=== PATIENT | female | born 1960 | race Caucasian/White ===

== ENCOUNTER 2018-06-28 15:02 | Emergency (ER) | payer MEDICAID, SELFPAY ==
[2018-06-28] VITALS (10 sets, daily range): BP systolic 105–118; BP diastolic 59–73; PULSE 78–103; RESP 15–18; TEMP 36.6–37.4; O2SAT 96–98; BMI 23.6
--- NOTE | 2018-06-28 15:28 | EKG12_ITS ---
Test Reason : SUICIDAL Blood Pressure : / mmHG Vent. Rate : 084 BPM Atrial Rate : 084 BPM P-R Int : 130 ms QRS Dur : 078 ms QT Int : 418 ms P-R-T Axes : 070 049 063 degrees QTc Int : 493 ms Normal sinus rhythm Prolonged QT Abnormal ECG Confirmed by PARTH FRASER, BRIDGETTE ([id number]), news videotape editor [place] ([id number]) on 06/30/2018 5:00:35 PM Referred By: Confirmed By:BRIDGETTE ALBA MD
--- NOTE | 2018-06-28 15:37 | ED.DCSUM_ITS ---
- ER Visit Summary Date of Service: 06/28/18 Chief Complaint: Suicidal ideation History of Present Illness: The patient is a 58 F who states that she wants to . She states that she feels worthless for being a drug addict. She states that she smokes meth very frequently. The patient states that she has been going to intensive outpatient rehab with [facility] but keeps missing appointments because she is using meth. She states that she wishes to overdose on methamphetamines and kill herself. Physical Examination: Afebrile vital signs are stable Gen: Well-nourished well-developed Head: Normocephalic atraumatic Eyes: Perrl EOMI ENT: TMs clear no rhinorrhea moist mucous membranes Neck: Supple no lymphadenopathy no JVD nontender CVS: Regular rate rhythm no murmurs normal S1-S2 Respiratory: No distress clear to auscultation bilaterally chest nontender Abdomen: Soft nontender nondistended normal bowel sounds no masses Back: Nontender Extremity: Nontender no edema Skin: Normal color no rash Neuro: alert orientated ?3 CN II-XII intact normal strength sensation reflexes gait cerebellar Psych: Depressed feelings of self worth admits to suicidal ideation Emergency Department Course and Treatment: Psychiatric screening labs were obtained. Toxicology is positive for amphetamines. Normal TSH. Potassium slightly low at 3 and she received 40 mEq p.o. Her EKG is sinus at a rate of 84. Crisis will be up to evaluate the patient. They have seen the patient and the patient has been accepted to [facility]. Most likely transfer will not occur until the morning. Will be assigned to the night physician. Impression: 1. Major depression 2. Suicidal 3. Methamphetamine abuse This note was generated with Gl[employer] dictation software. It may contain incorrect words, spelling, and punctuation that were not noted in review of the chart prior to signing ED Disposition - Plan for ED Patient: Referrals: Candido Adame MD [Primary Care Provider] -
[2018-06-28 16:01] LABS: Absolute Lymphocyte Count 0.98 X10^3/ul (0.83-4.51); Absolute Neutrophil Count 6.6 X10^3/uL (2.0-7.7); Basophil# 0.03 X10^3/uL; Basophil% 0.4 % (0-1); Eosinophil# 0.03 X10^3/uL; Eosinophils% 0.4 % (0-5); Hematocrit 41.5 % (37-47); Hemoglobin 14.1 g/dl (12.0-15.0); Lymphocyte # 0.98 X10^3/ul (4.0); Mean Corpuscular Hgb 31.3 pg (27.0-32.0); Mean Platelet Vol. 10.7 fl (6.2-12.0); Monocyte# 0.55 X10^3/uL; Monocyte% 6.7 % (0-10); Neutrophil # 6.57 X10^3/uL (2.7-7.7); Neutrophil % 80.4 % (47-70); Platelet Count 221 K/mm3 (150-450); RBC Distribution Width CV 13.1 % (11.6-14.6); RBC Distribution Width SD 43.3 fl (35.1-43.9); Red Blood Count 4.51 M/mm3 (4.2-5.4); White Blood Count 8.2 K/mm3 (4.4-11.0)
[2018-06-28 16:06] LABS: POSITIVE COUNT NO; POSITIVE DIFFERENTIAL NO; POSITIVE MORPHOLOGY NO
[2018-06-28 16:29] LABS: Amphetamine Urine VISTA POSITIVE (<1000 ng/mL); Barbiturate Urine VISTA NEGATIVE (< 200 ng/mL); Benzodiazepine Urine VISTA NEGATIVE (< 200 ng/mL); Cocaine Urine VISTA NEGATIVE (< 300 ng/mL); Ecstacy Urine VISTA NEGATIVE (< 500 ng/mL); Methadone Urine VISTA NEGATIVE (< 300 ng/mL); PCP Urine VISTA NEGATIVE (< 25 ng/mL); THC Urine VISTA NEGATIVE (< 50 ng/mL); Vista UDS pH Range 6
[2018-06-28 16:29] LABS: AST(SGOT) 82 U/L (15-37); Alanine Aminotransfer ALT/SGPT 73 U/L (13-56); Alkaline Phosphatase 78 U/L (45-117); Anion Gap 10 (5-15); BUN 19 mg/dL (7-18); BUN/Creat Ratio 26.5 RATIO (10-20); Calcium,Total 8.5 mg/dL (8.5-10.1); Chloride 98 mmol/L (98-107); Creatinine, Serum 0.72 mg/dL (0.55-1.02); EST Glomerular Filtration Rate 90 mL/min (>60); Est Glom Filt Rate - Afr Amer 108 mL/min (>60); Estimated Creatinine Clearance 73.27 ml/min; Glucose 153 mg/dL (74-106); Sodium Level 131 mmol/L (136-145); Thyroid Stim Hormone (TSH) 0.75 uIU/mL (0.358-3.74)
[2018-06-28 16:30] LABS: Pregnancy, Serum, hCG Quali. NEGATIVE Negative (0-9 Nonpreg)
--- NOTE | 2018-06-28 16:33 | ED.RN ---
CALLED [facility] AND THEY ARE AWARE THAT PT IS HERE
--- NOTE | 2018-06-28 16:37 | ED.RN ---
[facility] WITH [facility] WILL BE OVER TO EVAL PT
--- NOTE | 2018-06-28 18:03 | ED.RN ---
[facility] WITH [facility] IS TRYING TO GET PT PLACED WITH [facility]
--- NOTE | 2018-06-28 19:02 | ED.RN ---
PT GAVE PERMISSION TO RN TO GIVE PT'S DAUGHTER HER HOME BARRETT SO THAT HER DAUGHTER CAN GO TAKE CARE OF A FEW THINGS.
--- NOTE | 2018-06-28 20:28 | NURSING ---
accepted to [facility] [address] [phone]
--- NOTE | 2018-06-28 20:34 | NURSING ---
CALLED [facility] AND CANNOT TRANSPORT UNTIL 7:30AM
[2018-06-29] VITALS (9 sets, daily range): BP systolic 90–108; BP diastolic 53–73; PULSE 65–80; RESP 16–18; O2SAT 93–97
--- NOTE | 2018-06-29 03:08 | ED.RN ---
reguloter remains at the bedside.
--- NOTE | 2018-06-29 07:47 | ED.RN ---
Pt awake, alert and cooperative. Given breakfast sandwich. Squad here for transport.
--- NOTE | 2018-06-29 07:51 | ED.RN ---
Called [facility] to advise pt was on way.
== END 2018-06-29 07:51 | disposition home or self-care (01) ==
LOC: ED 15:50
PROVIDERS: Emergency Provider Emergency Medicine; Family Provider Family Medicine; PCP Family Medicine
DX: R45.851 Suicidal ideations (principal); F32.9 Major depressive disorder, single episode, unspecified; F15.10 Other stimulant abuse, uncomplicated; J44.9 Chronic obstructive pulmonary disease, unspecified; F41.9 Anxiety disorder, unspecified; Z72.0 Tobacco use; Z79.51 Long term (current) use of inhaled steroids; Z79.899 Other long term (current) drug therapy
CPT/HCPCS: 36415; 80053; 80307; 80320; 84443; 84703; 85025; 93005; 99284; G0480

== ENCOUNTER → 2024-04-20 | Outpatient (CLI) | payer MEDICAID, SELFPAY ==
--- NOTE | 2024-04-20 14:30 | LES_PTH ---
PATIENT: DIONISIO CHILDERS LOC: [facility]#:[id number] AGE/SX: 63/F ROOM: RE04/20/[address]: Dr. Rei Amaya MD : [id number] BED: DIS: 04/20/2024 SPEC #: [id number] RECD: 04/20/24 17:32 STATUS: MARY REPatty #: [id number] NEGIN: 04/20/24 14:[address]: Rei Amaya DEPT: SURGICAL PATHOLOGY RECD BY: Falguni Garcia ENTERED: 04/21/24 11:18 SP TYPE: Lesion OTHR DR: Dr. Candido Adame MD Tissues: Skin of eyelid, NOS Procedures: Surgery Specimen Level IV HEADER OPERATION: Excision pterygium, right eye with conjunctival graft PRE-OP DIAGNOSIS: Pterygium, right eye TISSUE SUBMITTED: Pterygium, right eye MICROSCOPIC DIAGNOSIS Lesion of right eye, biopsy: Consistent with Pterygium. AM. 04/22/2024 MICROSCOPIC DESCRIPTION Slides are reviewed. GROSS DESCRIPTION Received in fixative is one container labeled with the patient's name and designated Pterygium, right eye. The specimen consists of a piece of ramos congested soft tissue measuring 0.6 x 0.6 x 0.2cm. The entire specimen is submitted in one cassette. 04/21/2024 TC:5 CPT:61861
== END | disposition home or self-care (01) ==
PROVIDERS: PCP Family Medicine; Referring Provider Ophthalmology; Visit Provider Ophthalmology
DX: H11.001 Unspecified pterygium of right eye (principal)
CPT/HCPCS: 88305